=== PATIENT | male | born 1985 | race Caucasian/White ===

== ENCOUNTER 2018-05-13 15:06 | Emergency (ER) | payer OTHER ==
[~2018-05-13] VITALS: Ht 185.4 cm; Wt 88.5 kg
[2018-05-13 16:08] LABS: HEMATOCRIT 42.4 % (42.0-52.0); HEMOGLOBIN 14.4 gm/dL (14.0-18.0); MCH 30.9 pg (26.0-34.0); MCHC 34.1 g/dL (28.0-37.0); MCV 90.8 fL (80.0-100.0); PLATELET COUNT 174 thou/uL (150-400); RBC 4.67 mil/uL (4.50-6.00); RDW 12.8 % (10.5-14.5); WBC 5.8 thou/uL (4.0-11.0)
[2018-05-13 16:11] LABS: ANION GAP 7 mmol/L (7-16); BUN 19 mg/dL (7-18); CALCIUM 9.1 mg/dL (8.5-10.1); CHLORIDE 103 mmol/L (98-107); CO2 29 mmol/L (21-32); CREATININE 1.1 mg/dL (0.7-1.3); GLUCOSE 105 mg/dL (74-106); POTASSIUM 3.7 mmol/L (3.5-5.1); SODIUM 139 mmol/L (136-145)
[2018-05-13 16:15] LABS: AMP/METHAMP Negative (Negative); BARBITURATES Negative (Negative); BENZODIAZEPINES Negative (Negative); COCAINE Negative (Negative); METHADONE Negative (Negative); OPIATES Negative (Negative); PCP Negative (Negative)
[2018-05-13 16:20] LABS: TROPONIN-I <0.06 ng/mL (<0.06)
[2018-05-13 16:34] LABS: ABSOLUTE NEUTROPHILS 2.6 thou/uL (1.4-8.2); ANISOCYTOSIS 1+
[2018-05-13 17:06] VITALS: BP 119/76
--- NOTE | 2018-05-15 13:19 | EKG ---
[address] [address] ELECTROCARDIOGRAM REPORT Name: STACIMARGE SHIPMAN Room #: [facility]P [id number] ������������������ Admission: 05/13/18 ������������������ Attend Phys: Discharge: 05/13/18 ������������������ Date of : 87 Report #: [id number] ����������������������������������������������������������������� [id number] THIS REPORT FOR: //name// [facility] ED Test Date: 2018-05-13 Test Time: 15:29:18 Pat Name: MARGE SMALL Department: Room: Gender: M Boiler Attendant: [place] : 1985 Requested By: Kervin Lazo Order Number: [id number] MD: Fabrizio Hunt Measurements Intervals Holder Rate: 95 P: 73 FL: 173 QRS: 51 QRSD: 99 T: 24 QT: 354 QTc: 445 Interpretive Statements Sinus rhythm No significant abnormality No previous ECG available for comparison Electronically Signed On 05-15-2018 13:19:42 CDT by Fabrizio Hunt [email or web address] ��������������������������������������������� <ELECTRONICALLY SIGNED> ���������������������������������������� By: Fabrizio Hunt MD, [facility] ��������������������������������������������� 05/15/18 1319 1529 1529 Fabrizio Hunt MD, FACC /EPI
== END 2018-05-13 17:10 | disposition home or self-care (01) ==
LOC: ER 15:06
PROVIDERS: Emergency Medicine
DX: F12.90 Cannabis use, unspecified, uncomplicated (principal); R42 Dizziness and giddiness